=== PATIENT | female | born 1955 | race Caucasian/White ===

== ENCOUNTER 2021-12-29 16:23 | Inpatient (IN) | payer MEDICARE ==
[~2021-12-29] VITALS: Ht 162.6 cm; Wt 83.1 kg
[~2021-12-29 16:23] MED LIST: CALTRATE-600 W600 MG PO; LORATADINE10 MG PO; MVI; [UNRECOGNIZED DRUG - REMARK]
[2022-01-20] VITALS (11 sets, daily range): BP systolic 117–142; BP diastolic 60–71; PULSE 55–76; TEMP 97.5–98.1
[2022-01-20] MEDS ORDERED: OSTEO-BI-FLEX 21 TAB PO (12:01)
[2022-01-20] MEDS ORDERED: MIRALAX PA17 GM/Dose PO (12:02)
[2022-01-20] MEDS ORDERED: NATURAL POTASS595 MG (12:03)
[2022-01-20] MEDS ORDERED: CVS SPECTRAVIT1 EA15 PO (12:04)
[2022-01-20] MEDS ORDERED: OSCAL 500 TAB500 MG PO (12:05)
[2022-01-20] MEDS ORDERED: VITAMIN D31000 IU PO (12:06)
--- NOTE | 2022-01-20 12:33 | NUR ---
PT AMBULATED TO BAY 7 WITHOUT DIFFICULTY ACCOMPANIED BY HER . VS OBTAINED. CONSENT SIGNED. 20G IV INFUSING LR IN R HAND. PT ASSESSED. CALL LIGHT WITHIN REACH. PT DENIES ANY ADDITIONAL NEEDS AT THIS TIME. WILL CONTINUE TO MONITOR.
--- NOTE | 2022-01-20 18:40 | NUR ---
RECEIVED CHANGE OF SHIFT REPORT FROM DAY SHIFT RN. PATIENT ADMITTED POST OP TO DAY SHIFT RN. SPOUSE AT BEDSIDE. PATIENT SIPING ON WATER WITH NO REPORTED N/V. IV FLUIDS INFUSING WITH NO PROBLEMS. BROWN TO DD, DRAINING WITH NO PROBLEMS. ON ROOM AIR, OBSERVED PATIENT TAKING DEEP BREATHES "FOR MY ANXIETY" OBSERVED PATIENT WIGGLES MICKEY FEET BUT IDENTIFIES DULL SENSATION TO TOUCH TO BOTH FRIENDS.
[2022-01-21 04:23] VITALS: BP 110/50; PULSE 53; TEMP 98.2
--- NOTE | 2022-01-21 07:00 | NUR ---
PT RESTING IN BED WATCHING TV. PT DENIES NEEDS AT THIS TIME. PT HAS CALL LIGHT WITHIN REACH AND INSTRUCTED TO CALL WITH ALL NEEDS.
[2022-01-21 07:01] LABS: HEMOGLOBIN 11.2 g/dl (12.5-16.0)
--- NOTE | 2022-01-21 07:05 | NUR ---
CHANGE OF SHIFT REPORT GIVEN TO DAY SHIFT DANI. JASON
[2022-01-21 07:07] VITALS: BP 127/58; PULSE 66; TEMP 99
[2022-01-21 07:10] LABS: HEMATOCRIT 33.7 % (37.0-47.0)
[2022-01-21 07:16] LABS: CALCIUM 9.1 mg/dL (8.4-10.2); CREATININE, serum 0.91 mg/dL (0.57-1.11); POTASSIUM 4.5 mmol/L (3.5-4.5)
[2022-01-21 11:17] VITALS: BP 116/61; PULSE 58; TEMP 98.8
--- NOTE | 2022-01-21 13:52 | NUR ---
Shani: No faith preference Situation: arboreal scientist stopped by room on rounds Background: Pt was resting and content Assessment: No needs at this time, Pt appreciated the visit Recommendation: Junior Recruiter will follow up as needed
[2022-01-21 15:50] VITALS: BP 124/60; PULSE 61; TEMP 98.2
--- NOTE | 2022-01-21 16:31 | NUR ---
odd jobs day worker met with patient to discuss discharge planning. Patient states she lives with her spouse and son son in [place] and plans to return there upon discharge. Patient states that she utilizes [facility] and will be working towards securing another primary care provider. patient states she has the Free [employer] D program and that her prescriptions are covered. Patient plans to return home upon discharge. Plans home with spouse.
[2022-01-21 19:37] VITALS: BP 140/55; PULSE 68; TEMP 98.4
--- NOTE | 2022-01-21 21:31 | NUR ---
PT A&OX4 RESTING IN BED, INDEPENDENT IN ROOM. ASSESSMENT COMPLETE AND MEDS GIVEN. PT DENIES PN. ABDOMEN INCISIONS CDI. INT TO RT HAND. NO NEEDS AT THIS TIME. CALL LIGHT WITHIN REACH.
[2022-01-22 00:14] VITALS: BP 129/50; PULSE 70; TEMP 98.5
[2022-01-22 05:05] VITALS: BP 105/41; PULSE 63; TEMP 98.7
[2022-01-22 07:58] VITALS: BP 126/61; PULSE 66; TEMP 98.5
--- NOTE | 2022-01-22 09:00 | NUR ---
Pt. sitting up in chair. Pt. is A&OX3, assessment complete. INT rt. hand patent. Pt. denies pain or other needs, call light within reach.
--- NOTE | 2022-01-22 09:54 | NUR ---
Initial visit; Patient thanked Homoeopath for checking on her and offering god's blessings. Homoeopath will keep Aalina Pacheco in her prayers.
[2022-01-22 12:11] VITALS: BP 115/55; PULSE 95; TEMP 98
--- NOTE | 2022-01-22 14:45 | NUR ---
Pt. ready to Discharge. Reviewed discharge instructions, follow-up appointments, home meds and pt. health summmary. Pt. voices understanding. INT discontinued from rt hand. Pt. escorted out by wheelchair.
== END 2022-01-22 14:45 | disposition home or self-care (01) | DRG 331 ==
LOC: INPTSU 01-20 11:22 → SURG 01-20 13:30
PROVIDERS: ADMIT Surgery
PROC: 0DTN4ZZ Resection of Sigmoid Colon, Percutaneous Endoscopic Approach (ICD-10-PCS; principal; 2022-01-20 13:30)
DX: D12.5 Benign neoplasm of sigmoid colon (principal); F32.A Depression, unspecified; F41.9 Anxiety disorder, unspecified; K62.3 Rectal prolapse; Z79.52 Long term (current) use of systemic steroids; Z90.89 Acquired absence of other organs; Z90.710 Acquired absence of both cervix and uterus
CPT/HCPCS: A4314; A9284; J1650; J2250; J2270; J2704; J3010; J7120

== ENCOUNTER → 2022-01-02 | Outpatient (CLI) | payer MEDICARE | LOC: COL.LAB 11:56 → COL.CARD 11:56 | DX: K63.5 Polyp of colon (principal) ==